=== PATIENT | female | born 1990 | race Caucasian/White ===

== ENCOUNTER 2018-10-23 13:18 | Emergency (ER) | payer BC, OTHER ==
[2018-10-23 14:09] LABS: CHLORIDE,CL 102 mmol/L (98-107); SODIUM,NA 137 mmol/L (136-145)
[2018-10-23] MEDS ORDERED: Iopamidol 612 MG/ML 100 ML Bottle IVPUSH ONE (14:53)
[2018-10-23] MEDS ORDERED: Sodium Chloride 0.9% 10 ML Syringe FLUSH PRN (15:06)
--- NOTE | 2018-10-23 16:22 | EDM.PDOC ---
ED HPI GENERAL MEDICAL PROBLEM - General Chief Complaint: Abdominal Pain Stated Complaint: abdominal pain Time Seen by Provider: 10/23/18 13:20 Source of Information: Reports: Patient, Family - History of Present Illness INITIAL COMMENTS - FREE TEXT/NARRATIVE: patient is a 28-year-old who was brought in by secondary to chief complaint of abdominal pain which she described as stabbingstarted earlier this morning yesterday she had some lower back pain. 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 Left Lower Abdomen Pain Score (Numeric/FACES): 5 - Related Data Allergies Allergy/AdvReac Type Severity Reaction Status Date / Time No Known Allergies Allergy Verified 10/23/18 13:22 Home Meds: Home Meds DULoxetine [Cymbalta] 30 mg PO DAILY 10/23/18 [History] Ibuprofen 400 mg PO ONETIME PRN 10/23/18 [History] Lisdexamfetamine Dimesylate [Vyvanse] 40 mg PO DAILY 10/23/18 [History] Past Medical History HEENT History: Reports: Impaired Vision Genitourinary History: Reports: Pyelonephritis Psychiatric History: Reports: Anxiety, Depression - Past Surgical History HEENT Surgical History: Reports: Oral Surgery Social & Family History - Tobacco Use Smoking Status *Q: Never Smoker - Caffeine Use Caffeine Use: Reports: Coffee, Soda - Recreational Drug Use Recreational Drug Use: No ED ROS GENERAL - Review of Systems Review Of Systems: See Below Constitutional: Reports: No Symptoms HEENT: Reports: No Symptoms Respiratory: Reports: No Symptoms Cardiovascular: Reports: No Symptoms Endocrine: Reports: No Symptoms GI/Abdominal: Reports: No Symptoms : Reports: No Symptoms Musculoskeletal: Reports: No Symptoms Skin: Reports: No Symptoms Neurological: Reports: No Symptoms Psychiatric: Reports: No Symptoms Hematologic/Lymphatic: Reports: No Symptoms Immunologic: Reports: No Symptoms ED EXAM, GI/ABD - Physical Exam Exam: See Below Exam Limited By: No Limitations General Appearance: Alert, WD/WN, No Apparent Distress Ears: Normal External Exam, Normal Canal, Hearing Grossly Normal, Normal TMs Nose: Normal Inspection, Normal Mucosa, No Blood Throat/Mouth: Normal Inspection, Normal Lips, Normal Teeth, Normal Gums, Normal Oropharynx, Normal Voice, No Airway Compromise Head: Atraumatic, Normocephalic Neck: Normal Inspection, Supple, Non-Tender, Full Range of Motion Respiratory/Chest: No Respiratory Distress Cardiovascular: Normal Peripheral Pulses, Regular Rate, Rhythm, No Edema, No Gallop, No JVD, No Murmur, No Rub GI/Abdominal Exam: Soft, Tender (left lower quadrant) (Female) Exam: Deferred Rectal (Female) Exam: Deferred Back Exam: Normal Inspection, Full Range of Motion, NT Extremities: Normal Inspection, Normal Range of Motion, Non-Tender, Normal Capillary Refill, No Pedal Edema Neurological: Alert, Oriented, CN II-XII Intact, Normal Cognition, Normal Gait, Normal Reflexes, No Motor/Sensory Deficits Psychiatric: Normal Affect, Normal Mood Course - Vital Signs Last Recorded V/S: Last Vital Signs Temp 98.8 F 10/23/18 13:21 Pulse 93 10/23/18 13:21 Resp 16 10/23/18 13:21 BP 123/78 10/23/18 13:21 Pulse Ox 100 10/23/18 13:21 - Orders/Labs/Meds Orders: Active Orders 24 hr Category Date Time Status Abdomen Pelvis w Cont [CT] Stat Exams 10/23/18 14:16 Ordered Sodium Chloride 0.9% [Saline Flush] Med 10/23/18 15:06 Ordered 10 ml FLUSH ASDIRECTED PRN Saline Lock Insert [OM.PC] Stat Oth 10/23/18 15:07 Ordered Medication Orders Sodium Chloride (Saline Flush) 10 ml FLUSH ASDIRECTED PRN PRN Reason: Keep Vein Open Labs: Laboratory Tests 10/23/18 10/23/18 10/23/18 Range/Units 13:39 13:50 13:50 WBC 8.1 (4.0-10.2) K/uL RBC 5.09 (3.77-5.09) M/uL Hgb 14.3 (11.7-15.5) g/dL Hct 42.1 (34.0-46.0) % MCV 82.7 L (84.0-98.0) fL MCH 28.1 L (28.2-33.3) pg MCHC 34.0 (31.7-36.0) g/dL RDW 13.5 (11.2-14.1) % Plt Count 265 (150-350) K/uL Neut % (Auto) 63.3 (45.0-80.0) % Lymph % (Auto) 27.5 (10.0-50.0) % Mcclain % (Auto) 8.0 (2.0-14.0) % Eos % (Auto) 1.0 (0.0-5.0) % Baso % (Auto) 0.2 (0.0-2.0) % Neut # (Auto) 5.11 (1.40-7.00) K/uL Lymph # (Auto) 2.22 (0.50-3.50) K/uL Mcclain # (Auto) 0.65 (0.00-1.00) K/uL Eos # (Auto) 0.08 (0.00-0.50) K/uL Baso # (Auto) 0.02 (0.00-0.20) K/uL Sodium 137 (136-145) mmol/L Potassium 4.1 (3.5-5.1) mmol/L Chloride 102 (98-107) mmol/L Carbon Dioxide 22.0 (21.0-32.0) mmol/L BUN 12 (7-18) mg/dL Creatinine 0.59 (0.51-1.17) mg/dL Est Cr Clr Drug Dosing 122.59 mL/min Estimated GFR (MDRD) > 60 mL/min Glucose 117 H (74-106) mg/dL Calcium 8.9 (8.5-10.1) mg/dL Total Bilirubin 0.4 (0.2-1.0) mg/dL AST 17 (15-37) U/L ALT 22 (12-78) U/L Alkaline Phosphatase 62 (46-116) IU/L Total Protein 8.0 (6.4-8.2) g/dL Albumin 3.8 (3.4-5.0) g/dL Specimen Type Urinvoid Urine Color Yellow Urine Appearance Clear Urine pH 7.0 (5.0-9.0) Ur Specific [place] 1.020 (1.005-1.030) Urine Protein Negative (NEGATIVE) mg/dL Urine Glucose (UA) Negative (NEGATIVE) mg/dL Urine Ketones Negative (NEGATIVE) mg/dL Urine Occult Blood Negative (NEGATIVE) Urine Nitrite Negative (NEGATIVE) Urine Bilirubin Negative (NEGATIVE) Urine Urobilinogen 0.2 (0.2-1.0) E.U./dL Ur Leukocyte Esterase Negative (NEGATIVE) Urine RBC 0-5 /HPF Urine WBC 0-5 /HPF Ur Epithelial Cells Few /LPF Urine Bacteria Few (NONE TO FEW) /HPF Urine HCG, Qual 10/23/18 Range/Units 13:50 WBC (4.0-10.2) K/uL RBC (3.77-5.09) M/uL Hgb (11.7-15.5) g/dL Hct (34.0-46.0) % MCV (84.0-98.0) fL MCH (28.2-33.3) pg MCHC (31.7-36.0) g/dL RDW (11.2-14.1) % Plt Count (150-350) K/uL Neut % (Auto) (45.0-80.0) % Lymph % (Auto) (10.0-50.0) % Mcclain % (Auto) (2.0-14.0) % Eos % (Auto) (0.0-5.0) % Baso % (Auto) (0.0-2.0) % Neut # (Auto) (1.40-7.00) K/uL Lymph # (Auto) (0.50-3.50) K/uL Mcclain # (Auto) (0.00-1.00) K/uL Eos # (Auto) (0.00-0.50) K/uL Baso # (Auto) (0.00-0.20) K/uL Sodium (136-145) mmol/L Potassium (3.5-5.1) mmol/L Chloride (98-107) mmol/L Carbon Dioxide (21.0-32.0) mmol/L BUN (7-18) mg/dL Creatinine (0.51-1.17) mg/dL Est Cr Clr Drug Dosing mL/min Estimated GFR (MDRD) mL/min Glucose (74-106) mg/dL Calcium (8.5-10.1) mg/dL Total Bilirubin (0.2-1.0) mg/dL AST (15-37) U/L ALT (12-78) U/L Alkaline Phosphatase (46-116) IU/L Total Protein (6.4-8.2) g/dL Albumin (3.4-5.0) g/dL Specimen Type Urine Color Urine Appearance Urine pH (5.0-9.0) Ur Specific [place] (1.005-1.030) Urine Protein (NEGATIVE) mg/dL Urine Glucose (UA) (NEGATIVE) mg/dL Urine Ketones (NEGATIVE) mg/dL Urine Occult Blood (NEGATIVE) Urine Nitrite (NEGATIVE) Urine Bilirubin (NEGATIVE) Urine Urobilinogen (0.2-1.0) E.U./dL Ur Leukocyte Esterase (NEGATIVE) Urine RBC /HPF Urine WBC /HPF Ur Epithelial Cells /LPF Urine Bacteria (NONE TO FEW) /HPF Urine HCG, Qual Negative Meds: Medications Generic Name Dose Route Start Last Admin Trade Name Freq PRN Reason Stop Dose Admin Sodium Chloride 10 ml 10/23/18 15:06 Saline Flush FLUSH ASDIRECTED PRN Keep Vein Open Discontinued Medications Generic Name Dose Route Start Last Admin Trade Name Freq PRN Reason Stop Dose Admin Iopamidol 100 ml 10/23/18 14:53 10/23/18 14:53 Isovue-300 (61%) IVPUSH 10/23/18 14:54 100 ml ONETIME ONE Administration Departure - Departure Time of Disposition: 16:44 Disposition: Home, Self-Care 01 Condition: Good Clinical Impression: Abdominal pain Qualifiers: Abdominal location: left lower quadrant Qualified Code(s): R10.32 - Left lower quadrant pain - Discharge Information *PRESCRIPTION DRUG MONITORING PROGRAM REVIEWED*: No *COPY OF PRESCRIPTION DRUG MONITORING REPORT IN PATIENT EVANGELISTA: No Referrals: Korin Nunn MD [Primary Care Provider] - Forms: ED Department Discharge Care Plan Goals: CT scan of the abdomen showed no abnormalities no diverticulitis or diverticulosis no ovarian cysts at this time we'll send her home she is to take Motrin 400 every 6 hours or Tylenol for pain control if pain worsens patient is to return for reevaluation . - My Orders Last 24 Hours: My Active Orders 10/23/18 14:16 Abdomen Pelvis w Cont [CT] Stat 10/23/18 15:06 Sodium Chloride 0.9% [Saline Flush] 10 ml FLUSH ASDIRECTED PRN 10/23/18 15:07 Saline Lock Insert [OM.PC] Stat - Assessment/Plan Last 24 Hours: My Active Orders 10/23/18 14:16 Abdomen Pelvis w Cont [CT] Stat 10/23/18 15:06 Sodium Chloride 0.9% [Saline Flush] 10 ml FLUSH ASDIRECTED PRN 10/23/18 15:07 Saline Lock Insert [OM.PC] Stat
== END 2018-10-23 16:53 | disposition home or self-care (01) ==
LOC: LL.ED 13:18
DX: R10.32 Left lower quadrant pain (principal); F41.9 Anxiety disorder, unspecified; F32.9 Major depressive disorder, single episode, unspecified; Z79.899 Other long term (current) drug therapy
CPT/HCPCS: 36415; 74177; 80053; 81001; 81025; 85025; 99284; Q9967

== ENCOUNTER 2021-03-10 00:50 | Emergency (ER) | payer BC, OTHER ==
--- NOTE | 2021-03-10 01:26 | EDM.PDOC ---
ED HPI GENERAL MEDICAL PROBLEM - General Chief Complaint: Upper Extremity Injury/Pain Stated Complaint: Shoulder pain Time Seen by Provider: 03/10/21 01:00 Source of Information: Reports: Patient History Limitations: Reports: No Limitations - History of Present Illness INITIAL COMMENTS - FREE TEXT/NARRATIVE: Pt. presents to ER with complaints of L shoulder and L wrist pain post fall. Pt. states that she was having a nightmare and fell out of bed onto an outstretched L hand, injuring her shoulder and wrist. Denies striking her head. No LOC. Denies any neck pain. Pt. states that the discomfort is located primarily in the L upper shoulder and L wrist. She states that she initially had some tingling in the fingers of the hand, but states that this has improved. Denies any chest or abdominal discomfort. No back pain. No pelvic or lower extremity pain. Pt. denies any chest pain, shortness of breath, lightheadedness, palpitations, or other symptoms prior to or after the fall. - Related Data Allergies Allergy/AdvReac Type Severity Reaction Status Date / Time No Known Allergies Allergy Verified 10/23/18 13:22 Home Meds: Home Meds DULoxetine [Cymbalta] 30 mg PO DAILY 10/23/18 [History] Ibuprofen 400 mg PO ONETIME PRN 10/23/18 [History] Lisdexamfetamine Dimesylate [Vyvanse] 40 mg PO DAILY 10/23/18 [History] Past Medical History HEENT History: Reports: Impaired Vision Genitourinary History: Reports: Pyelonephritis Psychiatric History: Reports: Anxiety, Depression - Past Surgical History HEENT Surgical History: Reports: Oral Surgery Social & Family History - Caffeine Use Caffeine Use: Reports: Coffee, Soda Review of Systems - Review of Systems Review Of Systems: Comprehensive ROS is negative, except as noted in HPI. ED EXAM, GENERAL - Physical Exam Exam: See Below Exam Limited By: No Limitations General Appearance: Alert, WD/WN, No Apparent Distress Extremities: Joint Swelling, Arm Pain, Limited Range of Motion, Other (CMS intact) Neurological: Alert, Oriented, CN II-XII Intact, Normal Cognition, Normal Gait, Normal Reflexes, No Motor/Sensory Deficits Psychiatric: Normal Affect, Normal Mood Course - Vital Signs Last Recorded V/S: Last Vital Signs Temp 36.2 C 03/10/21 01:00 Pulse 90 03/10/21 01:00 Resp 15 03/10/21 01:00 BP 122/67 03/10/21 01:00 Pulse Ox 100 03/10/21 01:00 - Orders/Labs/Meds Orders: Active Orders 24 hr Category Date Time Status Shoulder Comp Lt [CR] Stat Exams 03/10/21 01:08 Taken Wrist Comp Min 3V Lt [CR] Stat Exams 03/10/21 01:09 Taken DME for Discharge [COMM] Stat Oth 03/10/21 02:13 Ordered Meds: Medications Discontinued Medications Generic Name Dose Route Start Last Admin Trade Name Jeremie PRN Reason Stop Dose Admin Hydrocodone Bitart/Acetaminophen 1 tab 03/10/21 02:17 03/10/21 02:32 Acetaminophen/Hydrocodone 325-5 Mg Tab PO 03/10/21 02:18 1 tab ONETIME ONE Administration Hydrocodone Bitart/Acetaminophen 1 tab 03/10/21 02:41 Acetaminophen/Hydrocodone 325-5 Mg Tab PO 03/10/21 02:42 ONETIME ONE Hydrocodone Bitart/Acetaminophen 1 tab 03/10/21 02:42 Acetaminophen/Hydrocodone 325-5 Mg Tab PO 03/10/21 02:43 ONETIME ONE - Radiology Interpretation Free Text/Narrative:: Proximal humerus fracture Departure - Departure Time of Disposition: 02:49 Disposition: Home, Self-Care 01 Clinical Impression: Proximal humerus fracture - Discharge Information Instructions: Acetaminophen; Hydrocodone tablets or capsules, Humerus Fracture Treated With Immobilization Forms: ED Department Discharge Additional Instructions: Keep sling on. I reviewed your case with Dr. Anna at [facility]. He would like you to follow-up with Dr. Glover early next week. The number to set up the appointment is [phone]. [place] 5/325mg 1 every 4-6 hours as needed for pain. Ice area for 10-15 min every 1-2 hours Sepsis Event Note (ED) - Focused Exam Vital Signs: Vital Signs Temp Pulse Resp BP Pulse Ox 03/10/21 01:00 36.2 C 90 15 122/67 100 - Problem List Review Problem List Initiated/Reviewed/Updated: Yes - My Orders Last 24 Hours: My Active Orders 03/10/21 01:08 Shoulder Comp Lt [CR] Stat 03/10/21 01:09 Wrist Comp Min 3V Lt [CR] Stat 03/10/21 02:13 DME for Discharge [COMM] Stat - Assessment/Plan Last 24 Hours: My Active Orders 03/10/21 01:08 Shoulder Comp Lt [CR] Stat 03/10/21 01:09 Wrist Comp Min 3V Lt [CR] Stat 03/10/21 02:13 DME for Discharge [COMM] Stat Plan: Initially contacted [facility] (Dr. Landry) who was unable to view the images. Subsequently contact [facility] (Dr. Anna) who reviewed the case. He advised follow-up with Dr. Glover (shoulder surgery) on Thursday or Thursday. Pt. was given the number. Pt. was placed in a shoulder immobilizer. No numbness or tingling in distal portion of the extremity pre or post sling placement. Pt. was started on a short course of norco 5/325mg 1 tab every 4-6 hours as needed for pain. She was given her first dose in ER, and was given 2 more tablets for discomfort (pharmacies are not open today). Advised to try and sleep in a chair upright tonight. Images have been pushed to [facility].
[2021-03-10] MEDS ORDERED: Acetaminophen/HYDROcodone 325-5 MG Tab PO ONE ×3 (02:17→02:42)
== END 2021-03-10 02:50 | disposition home or self-care (01) ==
LOC: LL.ED 00:50
DX: S42.202A Unspecified fracture of upper end of left humerus, initial encounter for closed fracture (principal); W06.XXXA Fall from bed, initial encounter
CPT/HCPCS: 73030; 73110; 99283; A9270